=== PATIENT | female | born 1980 ===

== ENCOUNTER 2022-06-13 12:05 | Emergency (ER) | payer SELFPAY ==
[2022-06-13 13:26] LABS: Basophils # (Auto) 0.1 K/mm3 (0.0-0.1); Basophils % (Auto) 0.5 % (0.0-1.8); Eosinophils # (Auto) 0.1 K/mm3 (0.0-0.4); Eosinophils % (Auto) 0.7 % (0.0-4.3); Hematocrit 38.8 % (30.3-42.9); Hemoglobin 12.9 gm/dl (10.1-14.3); Lymphocytes # (Auto) 1.9 K/mm3 (1.2-5.4); Lymphocytes % (Auto) 15.7 % (13.4-35.0); Mean Corpuscular HGB Conc 33 % (30-34); Mean Corpuscular Volume 91 fl (79-97); Monocytes # (Auto) 1.3 K/mm3 (0.0-0.8); Monocytes % (Auto) 10.3 % (0.0-7.3); Platelet Count 350 K/mm3 (140-440); Red Blood Count 4.29 M/mm3 (3.65-5.03); Red Cell Distribution Width 14.2 % (13.2-15.2)
[2022-06-13 13:53] VITALS: BP 174/106
[2022-06-13 14:10] LABS: Alanine Aminotransferase 8 units/L (7-56); Albumin 4.6 g/dL (3.9-5); Blood Urea Nitrogen 9 mg/dL (7-17); Calcium 9.3 mg/dL (8.4-10.2); Hemolysis Index 10
[2022-06-13 14:18] LABS: BUN/Creatinine Ratio 18
[2022-06-13] MEDS ORDERED: CLINDAMYCIN 300 MG CAP PO ONE (14:30)
--- NOTE | 2022-06-13 14:36 | Emergency Department Report ---
HPI - General Chief Complaint: Dental/Oral Time Seen by Provider: 06/13/22 13:51 - HPI HPI: 41-year-old female with unknown past medical history (patient states she has not seen a primary care doctor "in over 10 years" presents for evaluation of 2 to 3 days of right lower jaw pain swelling as well as onset of shortness of breath today. Patient states that 1 year ago she saw her dentist for the same symptoms and was given antibiotics and states her "infection went away." She states approximately 1 week ago the same tooth broke off and that since then it has been hurting and now she has been having swelling. She reports difficulty opening her mouth completely. She states she had difficulty in opening her mouth and "got worried because I felt short of breath earlier." She states she has no pain with swallowing and is able to swallow her secretions as well as the applesauce she consumed earlier. No fevers or chills no nausea or vomiting. No chest pain. She has been taking ibuprofen as needed. LMP was 2 weeks ago. Pain currently 6 out of 10. ED Past Medical Hx - Past Medical History Previous Medical History?: No Hx Asthma: Yes Additional medical history: prior dental infection, ~2020 - Surgical History Past Surgical History?: No - Social History Smoking Status: Current Every Day Smoker Substance Use Type: Alcohol - Medications Home Medications: Home Medications Medication Instructions Recorded Confirmed Last Taken Type Ibuprofen [Motrin 800 MG tab] 800 mg PO Q8HR PRN #21 tablet 06/13/22 Unknown Rx clindamycin HCL [Clindamycin HCl] 300 mg PO Q8H #30 cap 06/13/22 Unknown Rx ED Review of Systems ROS: Stated complaint: SWOLLEN MOUTH Other details as noted in HPI Comment: All other systems reviewed and negative Constitutional: no symptoms reported ENT: dental pain, other Respiratory: shortness of breath Physical Exam - Physical Exam Vital Signs: Vital Signs 06/13/22 06/13/22 06/13/22 12:10 13:43 13:53 Temperature 98.4 F 98.2 F 98.2 F Pulse Rate 79 80 80 Respiratory 18 20 20 Rate Blood Pressure 174/106 Blood Pressure 177/92 174/106 [Right] O2 Sat by Pulse 100 98 98 Oximetry General: Gen: pt is well appearing, no acute distress, obvious right lower jaw facial asymmetry noted HEENT: Normocephalic atraumatic pupils equally round and reactive to light extraocular muscles intact sclera anicteric, significant trismus noted, patient has poor dentition, visible dental abscess located at premolar and right lower jaw, uvula midline without edema, no angioedema, no macroglossia, no Leonard's angina, tonsils symmetric and are nonenlarged, there are no tonsillar exudates o r petechiae Neck: Full range of motion, no midline spinal tenderness palpation, no JVD, no carotid bruits, no nuchal rigidity, patient has mildly palpable right anterior cervical lymphadenopathy CVS: S1-S2 regular rate and rhythm with no gallops rubs or murmurs, chest wall nontender Pulmonary: Clear to auscultation bilaterally, no wheezes rales or rhonchi Abdomen: Soft nondistended nontender no guarding or rebound tenderness, no palpable deformities or step-offs, normal active bowel sounds, no h epatosplenomegaly, no pulsatile masses : Deferred Extremities: No cyanosis no clubbing no edema, intact distal peripheral pulses, Integumentary: Skin normal, no petechia no purpura no abscess no lacerations no evidence of trauma no evidence of infection Neuro: Patient is awake alert and oriented to person place time situation, mentating well, cranial nerves II through XII intact, no focal neurodeficits, sensation grossly tact Psych: Calm cooperative, mood affect normal ED Course Vital Signs 06/13/22 06/13/22 06/13/22 12:10 13:43 13:53 Temperature 98.4 F 98.2 F 98.2 F Pulse Rate 79 80 80 Respiratory 18 20 20 Rate Blood Pressure 174/106 Blood Pressure 177/92 174/106 [Right] O2 Sat by Pulse 100 98 98 Oximetry - Reevaluation(s) Reevaluation #1: 06/13/22 14:33 Had an extensive conversation with the patient. Patient informed that she was ordered via the triage provider to undergo CT scan of her facial bones with contrast to further evaluate the area in question as it is likely she has an abscess but the extent of the abscess concerning size and if there any subsequen t complications, remain unknown. Expressed to her that I am worried given that she cannot open her mouth wide open completely and has significant pain and I am concerned. The patient is awake alert and oriented to person place and time and situation is mentating well. Patient states "I did not know I was ordered for a CAT scan." I informed her that I am in agreement with the CAT scan having been ordered by the triage provider. Patient then states "I get anxiety really bad and I will get that with a CAT scan." Patient advised by me that she will be given anxiolytics to help her proceed with getting the CAT scan done. She initially verbalized understanding but subsequently states that she is refusing a CAT scan and is requesting to be discharged to home "because I was just hoping to get antibiotics and nothing else like I did last time." The patient is awake alert and oriented to person place time situation, she is mentating well and per my clinical assessment, she has appropriate decision- making capacity. She is not confused, altered, or manifesting any evidence of extremis. She was informed that risk include but are not limited to: Worsening infection, spreading infection into her neck, inability to swallow, inability to breath and protect her airway,damage to blood vessels in her neck, spreading of infection into her brain, cardiac arrest, respiratory arrest, need for CPR, broken bones, lung collapse, infertility, multiple organ failure, paralysis either partial or complete, chronic bedbound state, infection, and . The patient is able to verbalize her understanding of these risks and states she understands all of them that have been explained to her. She is able to explain them back in layman's terms in her own words without any difficulty or apparent confusion. Nevertheless patient is requesting to be discharged. Patient signed out AGAINST MEDICAL ADVICE. ED Medical Decision Making - Lab Data Result diagrams: 06/13/22 12:45 06/13/22 12:45 - Medical Decision Making 41-year-old female presents for evaluation of right facial swelling, trismus, and complaints of dental abscess. Vital signs stable. Patient has leukocytosis. She was ordered for CT scan of her face with contrast by triage provider. Patient verbalized that she was not aware of this and subsequently refused to undergo CAT scan diagnostic imaging for further evaluation of the a stephanie of abscess and a possible subsequent complications. The patient was awake alert and oriented to person place time situation, mentating well, and per my assessment demonstrates appropriate decision-making capacity. She refused diagnostic imaging and further work-up, and subsequently signed out AGAINST MEDICAL ADVICE. Prior to leaving AGAINST MEDICAL ADVICE patient was given clindamycin 600 mg by mouth. Prescription for clindamycin was given. She was advised to follow-up with a dentist as soon as possible for reassessment and definitive management. Prior to leaving AGAINST MEDICAL ADVICE, patient was given strict verbal and written return precautions. Critical care attestation.: If time is entered above; I have spent that time in minutes in the direct care of this critically ill patient, excluding procedure time. ED Disposition Clinical Impression: Dental abscess, Facial swelling Disposition: 07 LEFT AGAINST MEDICAL ADVICE Is pt being admited?: No Does the pt Need Aspirin: No Condition: Stable Instructions: Dental Abscess, [id number] Additional Instructions: It is extremely important that you follow-up with a dentist within 1 to 2 days for immediate reassessment and further management of your dental infection. You are leaving AGAINST MEDICAL ADVICE. It was strongly recommended that you undergo a CAT scan and further work-up while you were here to determine the extent of your infection as well as to determine if there are any complications. Take ibuprofen as needed for pain. Alternate ibuprofen with acetaminophen for additional pain management. Take clindamycin, as directed, for 10 days. Be sure to complete your antibiotic prescription. Go to the nearest emergency department as soon as possible if you develop severe worsening facial pain, swelling under your tongue, difficulty swallowing, shortness of breath, tightness in your throat, inability tolerate liquids or solids, any fever of 100.4 Fahrenheit or higher, persistent headaches, or if any other new worrisome symptoms develop. Prescriptions: clindamycin HCL [Clindamycin HCl] 300 mg PO Q8H #30 cap Ibuprofen [Motrin 800 MG tab] 800 mg PO Q8HR PRN #21 tablet PRN Reason: Pain, Moderate (4-6)
== END 2022-06-13 16:06 | disposition left against medical advice (07) ==
LOC: ED 12:05
DX: K04.7 Periapical abscess without sinus (principal); J45.909 Unspecified asthma, uncomplicated; F17.200 Nicotine dependence, unspecified, uncomplicated; Z79.899 Other long term (current) drug therapy
CPT/HCPCS: 36415; 80053; 84702; 85025; 99283